=== PATIENT | female | born 1995 | race Caucasian/White ===

== ENCOUNTER 2017-01-19 11:27 | Emergency (ER) | payer OTHER ==
[~2017-01-19] VITALS: Wt 83.9 kg
[~2017-01-19 11:27] MED LIST: CELEXA20 MG PO; CLINDAMYCIN HC300 MG PO; LIDOCAINE VISC100 ML MM; LOPERAMIDE HCL2 MG PO; MOTRIN800 MG PO; PRENATAL1 TA1 PO; Ranitidine Hyd150 MG PO; ULTRAM50 MG PO; ZANTAC15 MG/ML; ZANTAC150 MG PO; ZOFRAN ODT4 MG PO; ZOFRAN2 MG/ML PO; ZOFRAN4 MG PO
[2017-01-19] MEDS ORDERED: NEURONTIN300 MG PO (11:30)
[2017-01-19] MEDS ORDERED: ESCITALOPRAM OX10 MG PO (11:30)
[2017-01-19] MEDS ORDERED: ALPRAZOLAM0.25 M2 PO (11:30)
[2017-01-19] MEDS ORDERED: BUPROPION HCL150 M1 PO (11:30)
[2017-01-19] MEDS ORDERED: NAPROSYN500 MG PO (11:41)
== END 2017-01-19 14:32 | disposition home or self-care (01) ==
LOC: ED 11:27
DX: S60.212A Contusion of left wrist, initial encounter (principal); F17.200 Nicotine dependence, unspecified, uncomplicated; Z79.899 Other long term (current) drug therapy; Z88.1 Allergy status to other antibiotic agents; Z88.8 Allergy status to other drugs, medicaments and biological substances; W19.XXXA Unspecified fall, initial encounter; Y93.89 Activity, other specified; Y92.89 Other specified places as the place of occurrence of the external cause; Y99.9 Unspecified external cause status

== ENCOUNTER 2017-03-16 16:34 | Emergency (ER) | payer OTHER ==
[~2017-03-16 16:34] MED LIST changes: +ALPRAZOLAM0.25 M2 PO; +BUPROPION HCL150 M1 PO; +ESCITALOPRAM OX10 MG PO; +NAPROSYN500 MG PO; +NEURONTIN300 MG PO
[2017-03-16 17:00] LABS: BILIRUBIN NEGATIVE (NEGATIVE); BLOOD 2+ (NEGATIVE); CLARITY SL CLOUDY (CLEAR); COLOR YELLOW (YELLOW); GLUCOSE NEGATIVE (NEGATIVE); KETONE NEGATIVE (NEGATIVE); LEUKO ESTERASE 1+ (NEGATIVE); NITRITE NEGATIVE (NEGATIVE); UROBILINOGEN 0.2 E.U./dl (0.2-1.0)
[2017-03-16 17:07] LABS: URINE AMPHETAMINES < 1000 (1000ng/ml); URINE BARBITURATES < 200 (200ng/ml); URINE BENZODIAZEPINES < 200 (200ng/ml); URINE CANNABINOIDS (THC) < 50 (50ng/ml); URINE COCAINE < 300 (300ng/ml); URINE METHADONE < 300 (300ng/ml); URINE OPIATES < 300 (300ng/ml)
[2017-03-16 17:08] LABS: BACTERIA 2+; EPITHELIAL CELLS TNTC; RBC 0-2 rbc/hpf (0-2)
[2017-03-16 17:09] LABS: URINE PHENCYCLIDINE < 25 (25ng/ml)
[2017-03-16 18:06] LABS: BASO % 0.2 % (0.0-1.0); EOS # 0.1 10*3/uL (0.0-0.4); EOS % 1.7 % (1.0-4.0); HEMATOCRIT 41.2 % (37.0-47.0); HEMOGLOBIN 13.3 g/dl (12.0-16.0); LYMPH # 2.5 10*3/uL (1.3-4.4); LYMPH % 30.6 % (27.0-41.0); MEAN CELL VOLUME 86.4 fl (81.0-99.0); MEAN CORPUSCULAR HGB 27.9 pg (27.0-31.0); MEAN CORPUSCULAR HGB CONC 32.3 g/dl (33.0-37.0); MEAN PLATELET VOLUME 9.4 fl (9.6-12.3); MONO # 0.4 10*3/uL (0.1-1.0); MONO % 5.3 % (3.0-9.0); PLATELET COUNT AUTOMATED 331 10*3/uL (130-400); RED BLOOD COUNT 4.77 10*6/uL (4.10-5.10); RED CELL DISTRI WIDTH 13.7 % (0-14.5); WHITE BLOOD COUNT 8.1 10*3/uL (4.8-10.8)
[2017-03-16 18:20] LABS: BUN 9 mg/dl (7-24); CHLORIDE 104 mmol/L (98-107); CREATININE 0.86 mg/dL (0.55-1.02); POTASSIUM 3.8 mmol/L (3.5-5.1); SODIUM 139 mmol/L (136-145)
[2017-03-16 18:21] LABS: ETHYL ALCOHOL < 3.0 mg/dl (<3)
[2017-03-16 18:27] LABS: ACETAMINOPHEN (TYLENOL) < 2.0 ug/ml (10-30); BETA-HCG, QUANT < 1.0 mIU/mL (1-3)
== END 2017-03-16 18:23 | disposition home or self-care (01) ==
LOC: ED 16:34
PROVIDERS: Emergency Medicine
DX: Z00.8 Encounter for other general examination (principal); F17.200 Nicotine dependence, unspecified, uncomplicated; Z79.899 Other long term (current) drug therapy; Z88.1 Allergy status to other antibiotic agents; Z88.8 Allergy status to other drugs, medicaments and biological substances

== ENCOUNTER 2017-03-20 20:50 | Emergency (ER) | payer OTHER ==
[~2017-03-20] VITALS: Ht 162.5 cm; Wt 90.7 kg
[2017-03-20 21:24] LABS: BILIRUBIN NEGATIVE (NEGATIVE); BLOOD NEGATIVE (NEGATIVE); CLARITY CLEAR (CLEAR); COLOR YELLOW (YELLOW); GLUCOSE NEGATIVE (NEGATIVE); KETONE NEGATIVE (NEGATIVE); LEUKO ESTERASE NEGATIVE (NEGATIVE); NITRITE NEGATIVE (NEGATIVE); SPECIFIC GRAVITY 1.015 (1.005-1.030); UROBILINOGEN 0.2 E.U./dl (0.2-1.0)
[2017-03-20 21:35] LABS: BACTERIA TRACE; MUCOUS 1+; RBC 0-2 rbc/hpf (0-2)
[2017-03-20 21:50] LABS: BASO % 0.4 % (0.0-1.0); EOS # 0.1 10*3/uL (0.0-0.4); EOS % 1.3 % (1.0-4.0); HEMATOCRIT 41.8 % (37.0-47.0); HEMOGLOBIN 13.5 g/dl (12.0-16.0); LYMPH # 2.1 10*3/uL (1.3-4.4); LYMPH % 40.6 % (27.0-41.0); MEAN CORPUSCULAR HGB 27.8 pg (27.0-31.0); MEAN CORPUSCULAR HGB CONC 32.3 g/dl (33.0-37.0); MEAN PLATELET VOLUME 9.4 fl (9.6-12.3); MONO # 0.4 10*3/uL (0.1-1.0); MONO % 7.2 % (3.0-9.0); NEUT # 2.6 10*3/uL (2.3-7.9); NEUT % 50.3 % (47.0-73.0); PLATELET COUNT AUTOMATED 297 10*3/uL (130-400); RED BLOOD COUNT 4.86 10*6/uL (4.10-5.10); WHITE BLOOD COUNT 5.3 10*3/uL (4.8-10.8)
[2017-03-20 22:05] LABS: ALBUMIN 3.6 gm/dl (3.1-4.5); ALKALINE PHOSPHATASE 129 U/L (45-117); BUN 6 mg/dl (7-24); CHLORIDE 104 mmol/L (98-107); CREATININE 0.84 mg/dL (0.55-1.02); LIPASE 148 U/L (73-393); POTASSIUM 3.5 mmol/L (3.5-5.1); SGOT/AST 13 IU/L (3-35); SGPT/ALT 35 U/L (12-78); SODIUM 139 mmol/L (136-145); TOTAL PROTEIN 7.3 gm/dL (6.4-8.2)
== END 2017-03-20 22:43 | disposition home or self-care (01) ==
LOC: ED 20:50
PROVIDERS: Nurse Practitioner
DX: R10.13 Epigastric pain (principal); R00.0 Tachycardia, unspecified; F17.200 Nicotine dependence, unspecified, uncomplicated; Z79.899 Other long term (current) drug therapy; Z88.1 Allergy status to other antibiotic agents; Z88.8 Allergy status to other drugs, medicaments and biological substances

== ENCOUNTER 2017-06-07 13:28 | Emergency (ER) | payer OTHER ==
[~2017-06-07] VITALS: Ht 162.5 cm; Wt 90.7 kg
[2017-06-07 15:07] LABS: ALBUMIN 3.7 gm/dl (3.1-4.5); ALKALINE PHOSPHATASE 127 U/L (45-117); B-hCG (QUALITATIVE) NEGATIVE (NEGATIVE); BUN 5 mg/dl (7-24); CHLORIDE 106 mmol/L (98-107); CREATININE 0.64 mg/dL (0.55-1.02); POTASSIUM 3.4 mmol/L (3.5-5.1); SGOT/AST 20 IU/L (3-35); SGPT/ALT 31 U/L (12-78); SODIUM 137 mmol/L (136-145)
[2017-06-07 15:42] LABS: BASO % 0.2 % (0.0-1.0); EOS % 0.3 % (1.0-4.0); HEMOGLOBIN 12.9 g/dl (12.0-16.0); LYMPH # 1.5 10*3/uL (1.3-4.4); LYMPH % 15.4 % (27.0-41.0); MEAN CELL VOLUME 85.2 fl (81.0-99.0); MEAN CORPUSCULAR HGB 28.9 pg (27.0-31.0); MEAN CORPUSCULAR HGB CONC 33.9 g/dl (33.0-37.0); MEAN PLATELET VOLUME 9.9 fl (9.6-12.3); MONO # 0.5 10*3/uL (0.1-1.0); MONO % 5.3 % (3.0-9.0); NEUT # 7.8 10*3/uL (2.3-7.9); NEUT % 78.2 % (47.0-73.0); PLATELET COUNT AUTOMATED 254 10*3/uL (130-400); RED BLOOD COUNT 4.46 10*6/uL (4.10-5.10); RED CELL DISTRI WIDTH 14.3 % (0-14.5)
[2017-06-07] MEDS ORDERED: ZOFRAN ODT4 MG SL (16:34)
[2017-06-07] MEDS ORDERED: AUGMENTIN 875875 MG PO (16:34)
== END 2017-06-07 17:44 | disposition home or self-care (01) ==
LOC: ED 13:28
PROVIDERS: Emergency Medicine
DX: L03.213 Periorbital cellulitis (principal); F17.200 Nicotine dependence, unspecified, uncomplicated; Z79.899 Other long term (current) drug therapy; Z88.1 Allergy status to other antibiotic agents; Z88.8 Allergy status to other drugs, medicaments and biological substances

== ENCOUNTER 2017-07-12 20:17 | Emergency (ER) | payer OTHER ==
[~2017-07-12] VITALS: Ht 165.1 cm; Wt 99.8 kg
[~2017-07-12 20:17] MED LIST changes: +AUGMENTIN 875875 MG PO; +ZOFRAN ODT4 MG SL
[2017-07-12] MEDS ORDERED: AUGMENTIN 875875 MG PO (21:47)
== END 2017-07-12 21:53 | disposition home or self-care (01) ==
LOC: ED 20:17
DX: K02.9 Dental caries, unspecified (principal); F17.200 Nicotine dependence, unspecified, uncomplicated; Z88.1 Allergy status to other antibiotic agents; Z88.2 Allergy status to sulfonamides

== ENCOUNTER 2017-09-17 11:50 | Emergency (ER) | payer OTHER ==
[~2017-09-17] VITALS: Ht 162.5 cm; Wt 90.7 kg
[2017-09-17] MEDS ORDERED: AMOXICILLIN500 M2 PO (12:13)
[2017-09-17] MEDS ORDERED: ZOFRAN ODT4 MG SL (12:13)
[2017-09-17] MEDS ORDERED: ZYRTEC10 MG PO (12:13)
== END 2017-09-17 12:21 | disposition home or self-care (01) ==
LOC: ED 11:50
DX: J01.90 Acute sinusitis, unspecified (principal); F17.200 Nicotine dependence, unspecified, uncomplicated; Z79.899 Other long term (current) drug therapy; Z87.01 Personal history of pneumonia (recurrent); Z88.5 Allergy status to narcotic agent; Z88.6 Allergy status to analgesic agent; Z88.1 Allergy status to other antibiotic agents

== ENCOUNTER 2018-03-04 10:55 | Emergency (ER) | payer OTHER ==
[~2018-03-04] VITALS: Ht 162.5 cm; Wt 90.7 kg
[~2018-03-04 10:55] MED LIST changes: +AMOXICILLIN500 M2 PO; +ZYRTEC10 MG PO
[2018-03-04 11:30] LABS: BASO % 0.3 % (0.0-1.0); EOS # 0.1 10*3/uL (0.0-0.4); EOS % 1.4 % (1.0-4.0); HEMATOCRIT 43.2 % (37.0-47.0); LYMPH # 2.6 10*3/uL (1.3-4.4); LYMPH % 34.9 % (27.0-41.0); MEAN CELL VOLUME 90.9 fl (81.0-99.0); MEAN CORPUSCULAR HGB 29.5 pg (27.0-31.0); MEAN CORPUSCULAR HGB CONC 32.4 g/dl (33.0-37.0); MEAN PLATELET VOLUME 9.3 fl (9.6-12.3); MONO # 0.3 10*3/uL (0.1-1.0); MONO % 4.2 % (3.0-9.0); NEUT # 4.3 10*3/uL (2.3-7.9); NEUT % 58.8 % (47.0-73.0); PLATELET COUNT AUTOMATED 287 10*3/uL (130-400); RED BLOOD COUNT 4.75 10*6/uL (4.10-5.10); RED CELL DISTRI WIDTH 13.1 % (0-14.5); WHITE BLOOD COUNT 7.3 10*3/uL (4.8-10.8)
[2018-03-04 11:44] LABS: ALBUMIN 3.5 gm/dl (3.1-4.5); ALKALINE PHOSPHATASE 119 U/L (45-117); BUN 5 mg/dl (7-24); CHLORIDE 105 mmol/L (98-107); CREATININE 0.85 mg/dL (0.55-1.02); POTASSIUM 3.9 mmol/L (3.5-5.1); SGOT/AST 37 IU/L (3-35); SGPT/ALT 76 U/L (12-78); SODIUM 138 mmol/L (136-145)
[2018-03-04 11:53] LABS: BILIRUBIN NEGATIVE (NEGATIVE); BLOOD NEGATIVE (NEGATIVE); CLARITY CLOUDY (CLEAR); COLOR YELLOW (YELLOW); GLUCOSE NEGATIVE (NEGATIVE); KETONE NEGATIVE (NEGATIVE); LEUKO ESTERASE 1+ (NEGATIVE); NITRITE NEGATIVE (NEGATIVE); PH 6.5 (5.0-9.0); SPECIFIC GRAVITY 1.015 (1.005-1.030); UROBILINOGEN 0.2 E.U./dl (0.2-1.0)
[2018-03-04 12:10] LABS: BACTERIA 2+; MUCOUS TRACE
[2018-03-04] MEDS ORDERED: MACROBID100 M1 PO (12:19)
[2018-03-04] MEDS ORDERED: Zofran4 MG SL (12:19)
== END 2018-03-04 12:39 | disposition home or self-care (01) ==
LOC: ED 10:55
PROVIDERS: Nurse Practitioner Family
DX: N39.0 Urinary tract infection, site not specified (principal); R30.0 Dysuria; R11.0 Nausea; F17.200 Nicotine dependence, unspecified, uncomplicated; Z88.2 Allergy status to sulfonamides; Z79.899 Other long term (current) drug therapy

== ENCOUNTER 2021-01-05 02:53 | Emergency (ER) | payer OTHER ==
[~2021-01-05] VITALS: Ht 162.5 cm; Wt 90.7 kg
[~2021-01-05 02:53] MED LIST changes: +MACROBID100 M1 PO; +Zofran4 MG SL
[2021-01-05] MEDS ORDERED: AMOXICILLIN500 M2 PO (04:12)
== END 2021-01-05 04:27 | disposition home or self-care (01) ==
LOC: ED 02:53
DX: K08.89 Other specified disorders of teeth and supporting structures (principal); F17.200 Nicotine dependence, unspecified, uncomplicated; Z79.899 Other long term (current) drug therapy; Z88.2 Allergy status to sulfonamides; Z88.1 Allergy status to other antibiotic agents; Z88.8 Allergy status to other drugs, medicaments and biological substances

== ENCOUNTER 2022-01-28 13:24 | Emergency (ER) | payer OTHER ==
[~2022-01-28] VITALS: Wt 93.0 kg
[2022-01-28] MEDS ORDERED: CLINDAMYCIN HC300 MG PO (13:53)
== END 2022-01-28 14:00 | disposition home or self-care (01) ==
LOC: ED 13:24
DX: K08.89 Other specified disorders of teeth and supporting structures (principal); Z79.899 Other long term (current) drug therapy; Z88.2 Allergy status to sulfonamides; Z88.1 Allergy status to other antibiotic agents

== ENCOUNTER 2022-05-28 11:49 | Emergency (ER) | payer OTHER ==
[~2022-05-28] VITALS: Ht 162.5 cm; Wt 88.5 kg
[2022-05-28] MEDS ORDERED: RELAFEN500 M1 PO (15:07)
[2022-05-28] MEDS ORDERED: CYCLOBENZAPRINE10 MG PO (15:07)
[2022-05-28] MEDS ORDERED: LIDODERM1 EACH T (15:07)
== END 2022-05-28 15:20 | disposition home or self-care (01) ==
LOC: ED 11:49
DX: M54.2 Cervicalgia (principal); M25.512 Pain in left shoulder; Z88.2 Allergy status to sulfonamides; Z88.1 Allergy status to other antibiotic agents; Z79.899 Other long term (current) drug therapy; Z90.89 Acquired absence of other organs; F17.200 Nicotine dependence, unspecified, uncomplicated; V86.59XA Driver of other special all-terrain or other off-road motor vehicle injured in nontraffic accident, initial encounter; Y93.89 Activity, other specified; Y92.89 Other specified places as the place of occurrence of the external cause; Y99.8 Other external cause status

== ENCOUNTER 2022-07-02 18:11 | Emergency (ER) | payer OTHER ==
[~2022-07-02] VITALS: Wt 88.9 kg
[~2022-07-02 18:11] MED LIST changes: +CYCLOBENZAPRINE10 MG PO; +LIDODERM1 EACH T; +RELAFEN500 M1 PO
== END 2022-07-02 20:45 | disposition left against medical advice (07) ==
LOC: ED 18:11
DX: N93.9 Abnormal uterine and vaginal bleeding, unspecified (principal); Z53.21 Procedure and treatment not carried out due to patient leaving prior to being seen by health care provider

== ENCOUNTER 2022-07-03 19:58 | Emergency (ER) | payer OTHER ==
[~2022-07-03] VITALS: Ht 162.5 cm; Wt 88.9 kg
[2022-07-03 21:23] LABS: BASO % 0.2 % (0.0-1.0); EOS # 0.1 10*3/uL (0.0-0.4); HEMATOCRIT 45.3 % (37.0-47.0); LYMPH # 3.6 10*3/uL (1.3-4.4); LYMPH % 39.4 % (27.0-41.0); MEAN CELL VOLUME 92.8 fl (81.0-99.0); MEAN CORPUSCULAR HGB 31.1 pg (27.0-31.0); MEAN CORPUSCULAR HGB CONC 33.6 g/dl (33.0-37.0); MEAN PLATELET VOLUME 9.4 fl (9.6-12.3); MONO # 0.4 10*3/uL (0.1-1.0); MONO % 4.4 % (3.0-9.0); NEUT % 54.8 % (47.0-73.0); PLATELET COUNT AUTOMATED 313 10*3/uL (130-400); RED BLOOD COUNT 4.88 10*6/uL (4.10-5.10); RED CELL DISTRI WIDTH 12.4 % (0-14.5); WHITE BLOOD COUNT 9.1 10*3/uL (4.8-10.8)
[2022-07-03 21:26] LABS: BILIRUBIN Negative (Negative); BLOOD Negative (Negative); CLARITY Clear (Clear); COLOR Yellow (Yellow); GLUCOSE Negative (Negative); KETONE Negative (Negative); LEUKO ESTERASE Trace (Negative); NITRITE Negative (Negative); PH 5.5 (4.5-8.0); UROBILINOGEN 0.2 E.U./dl (0.0-1.0)
[2022-07-03 21:41] LABS: ALKALINE PHOSPHATASE 94 U/L (46-116); BUN 7 mg/dl (9-23); CHLORIDE 105 mmol/L (98-107); POTASSIUM 3.6 mmol/L (3.4-5.1); SGPT/ALT 7 U/L (10-49); TOTAL PROTEIN 6.7 gm/dL (6.0-8.0)
[2022-07-03 21:45] LABS: BACTERIA TRACE
[2022-07-03 21:46] LABS: B-hCG (QUALITATIVE) NEGATIVE (NEGATIVE)
== END 2022-07-03 22:44 | disposition home or self-care (01) ==
LOC: ED 19:58
PROVIDERS: Emergency Medicine
DX: N93.8 Other specified abnormal uterine and vaginal bleeding (principal)

== ENCOUNTER 2022-12-01 20:16 | Emergency (ER) | payer OTHER ==
[~2022-12-01] VITALS: Ht 162.5 cm; Wt 81.6 kg
== END 2022-12-01 22:29 | disposition home or self-care (01) ==
LOC: ED 20:16
DX: T78.40XA Allergy, unspecified, initial encounter (principal); H10.9 Unspecified conjunctivitis; F32.A Depression, unspecified; Z88.2 Allergy status to sulfonamides; Z88.1 Allergy status to other antibiotic agents; Z88.8 Allergy status to other drugs, medicaments and biological substances; Z98.890 Other specified postprocedural states; X58.XXXA Exposure to other specified factors, initial encounter

== ENCOUNTER 2023-03-29 19:20 | Emergency (ER) | payer OTHER ==
[~2023-03-29] VITALS: Ht 162.5 cm; Wt 79.4 kg
[2023-03-29 20:06] LABS: BILIRUBIN Negative (Negative); BLOOD Negative (Negative); CLARITY Clear (Clear); COLOR Yellow (Yellow); GLUCOSE Negative (Negative); KETONE Negative (Negative); LEUKO ESTERASE Trace (Negative); NITRITE Negative (Negative); PH 6.5 (4.5-8.0); SPECIFIC GRAVITY 1.015 (1.001-1.030)
[2023-03-29 20:23] LABS: BASO % 0.3 % (0.0-1.0); EOS # 0.2 10*3/uL (0.0-0.4); EOS % 2.2 % (1.0-4.0); HEMATOCRIT 34.9 % (37.0-47.0); LYMPH # 3.3 10*3/uL (1.3-4.4); LYMPH % 43.2 % (27.0-41.0); MEAN CELL VOLUME 92.6 fl (81.0-99.0); MEAN CORPUSCULAR HGB 29.7 pg (27.0-31.0); MEAN CORPUSCULAR HGB CONC 32.1 g/dl (33.0-37.0); MEAN PLATELET VOLUME 9.9 fl (9.6-12.3); MONO # 0.5 10*3/uL (0.1-1.0); MONO % 5.9 % (3.0-9.0); NEUT # 3.7 10*3/uL (2.3-7.9); NEUT % 48.3 % (47.0-73.0); NUCLEATED RED BLOOD CELL 0.1 10*3/uL (0.0-0.0); PLATELET COUNT AUTOMATED 287 10*3/uL (130-400); RED BLOOD COUNT 3.77 10*6/uL (4.10-5.10); RED CELL DISTRI WIDTH 14.5 % (0-14.5); WHITE BLOOD COUNT 7.6 10*3/uL (4.8-10.8)
[2023-03-29 20:23] LABS: RBC 0-2 rbc/hpf (0-2)
[2023-03-29 20:24] LABS: BACTERIA 2+
[2023-03-29 20:43] LABS: INTERNATIONAL NORM RATIO 1.1 (2.0-3.5)
[2023-03-29] MEDS ORDERED: CIPRO500 MG PO (20:44)
[2023-03-29 21:03] LABS: ALKALINE PHOSPHATASE 70 U/L (46-116); BETA-HCG, QUANT < 3.0 mIU/mL (3-10); BUN 9 mg/dl (9-23); CHLORIDE 110 mmol/L (98-107); LIPASE 22 U/L (12-53); POTASSIUM 3.2 mmol/L (3.4-5.1); SGPT/ALT 13 U/L (10-49); TOTAL PROTEIN 5.7 gm/dL (6.0-8.0)
== END 2023-03-29 21:16 | disposition home or self-care (01) ==
LOC: ED 19:20
PROVIDERS: Internal Medicine
DX: N39.0 Urinary tract infection, site not specified (principal); E87.6 Hypokalemia; Z88.2 Allergy status to sulfonamides; Z88.1 Allergy status to other antibiotic agents; Z79.2 Long term (current) use of antibiotics; Z79.899 Other long term (current) drug therapy

== ENCOUNTER 2023-04-01 21:23 | Emergency (ER) | payer OTHER ==
[~2023-04-01] VITALS: Ht 162.5 cm; Wt 78.0 kg
[~2023-04-01 21:23] MED LIST changes: +CIPRO500 MG PO
[2023-04-01 22:01] LABS: BASO % 0.4 % (0.0-1.0); EOS # 0.1 10*3/uL (0.0-0.4); EOS % 1.2 % (1.0-4.0); HEMATOCRIT 37.1 % (37.0-47.0); LYMPH # 3.5 10*3/uL (1.3-4.4); LYMPH % 42.6 % (27.0-41.0); MEAN CELL VOLUME 90.3 fl (81.0-99.0); MEAN CORPUSCULAR HGB 29.7 pg (27.0-31.0); MEAN CORPUSCULAR HGB CONC 32.9 g/dl (33.0-37.0); MEAN PLATELET VOLUME 9.5 fl (9.6-12.3); MONO # 0.3 10*3/uL (0.1-1.0); MONO % 4.1 % (3.0-9.0); NEUT # 4.1 10*3/uL (2.3-7.9); NEUT % 50.5 % (47.0-73.0); PLATELET COUNT AUTOMATED 345 10*3/uL (130-400); RED BLOOD COUNT 4.11 10*6/uL (4.10-5.10); RED CELL DISTRI WIDTH 14.6 % (0-14.5); WHITE BLOOD COUNT 8.1 10*3/uL (4.8-10.8)
[2023-04-01 22:24] LABS: ALKALINE PHOSPHATASE 77 U/L (46-116); BUN 6 mg/dl (9-23); CHLORIDE 110 mmol/L (98-107); LIPASE 36 U/L (12-53); POTASSIUM 2.9 mmol/L (3.4-5.1); SGPT/ALT 9 U/L (10-49); TOTAL PROTEIN 6.5 gm/dL (6.0-8.0)
[2023-04-01 22:24] LABS: BILIRUBIN Negative (Negative); BLOOD Negative (Negative); CLARITY Clear (Clear); COLOR Yellow (Yellow); GLUCOSE Negative (Negative); KETONE Negative (Negative); LEUKO ESTERASE Negative (Negative); NITRITE Negative (Negative); SPECIFIC GRAVITY <= 1.005 (1.001-1.030); UROBILINOGEN 0.2 E.U./dl (0.0-1.0)
[2023-04-01 23:03] LABS: EPITHELIAL CELLS 21-30
[2023-04-01 23:29] LABS: URINE AMPHETAMINES Negative (1000ng/ml); URINE BARBITURATES Negative (200ng/ml); URINE BENZODIAZEPINES Positive (200ng/ml); URINE CANNABINOIDS (THC) Positive (50ng/ml); URINE COCAINE Positive (300ng/ml); URINE METHADONE Negative (300ng/ml); URINE OPIATES Negative (300ng/ml); URINE PHENCYCLIDINE Negative (25ng/ml)
== END 2023-04-01 23:45 | disposition home or self-care (01) ==
LOC: ED 21:23
PROVIDERS: Internal Medicine
DX: R11.10 Vomiting, unspecified (principal); F12.10 Cannabis abuse, uncomplicated; F32.A Depression, unspecified; Z79.899 Other long term (current) drug therapy; Z88.2 Allergy status to sulfonamides; Z88.1 Allergy status to other antibiotic agents; Z88.8 Allergy status to other drugs, medicaments and biological substances; Z98.890 Other specified postprocedural states; F17.290 Nicotine dependence, other tobacco product, uncomplicated

== ENCOUNTER 2023-06-14 12:08 | Emergency (ER) | payer OTHER ==
[~2023-06-14] VITALS: Ht 162.5 cm; Wt 72.6 kg
[2023-06-14] MEDS ORDERED: OMEPRAZOLE40 MG PO (12:30)
[2023-06-14] MEDS ORDERED: VALIUM2 MG PO (12:30)
[2023-06-14 13:09] LABS: BASO % 0.4 % (0.0-1.0); EOS # 0.1 10*3/uL (0.0-0.4); EOS % 1.2 % (1.0-4.0); HEMATOCRIT 38.9 % (37.0-47.0); LYMPH # 2.6 10*3/uL (1.3-4.4); LYMPH % 33.5 % (27.0-41.0); MEAN CELL VOLUME 92.6 fl (81.0-99.0); MEAN CORPUSCULAR HGB 28.6 pg (27.0-31.0); MEAN CORPUSCULAR HGB CONC 30.8 g/dl (33.0-37.0); MEAN PLATELET VOLUME 9.4 fl (9.6-12.3); MONO # 0.5 10*3/uL (0.1-1.0); MONO % 5.8 % (3.0-9.0); NEUT # 4.6 10*3/uL (2.3-7.9); NEUT % 58.8 % (47.0-73.0); PLATELET COUNT AUTOMATED 269 10*3/uL (130-400); RED CELL DISTRI WIDTH 14.4 % (0-14.5); WHITE BLOOD COUNT 7.8 10*3/uL (4.8-10.8)
[2023-06-14 13:11] LABS: BILIRUBIN Negative (Negative); BLOOD Trace-Intact (Negative); CLARITY Cloudy (Clear); COLOR Yellow (Yellow); GLUCOSE Negative (Negative); KETONE Negative (Negative); LEUKO ESTERASE 3+ (Negative); NITRITE Negative (Negative); UROBILINOGEN 0.2 E.U./dl (0.0-1.0)
[2023-06-14 13:26] LABS: WBC TNTC wbc/hpf (0-5)
[2023-06-14 13:30] LABS: ALKALINE PHOSPHATASE 92 U/L (46-116); BUN 8 mg/dl (9-23); CHLORIDE 109 mmol/L (98-107); LIPASE 29 U/L (12-53); POTASSIUM 3.6 mmol/L (3.4-5.1); SGPT/ALT 23 U/L (5-49); TOTAL PROTEIN 6.1 gm/dL (6.0-8.0)
[2023-06-14] MEDS ORDERED: CIPRO500 MG PO (15:58)
== END 2023-06-14 16:14 | disposition home or self-care (01) ==
LOC: ED 12:08
PROVIDERS: Nurse Practitioner Family
DX: N39.0 Urinary tract infection, site not specified (principal); F32.A Depression, unspecified; Z91.041 Radiographic dye allergy status; Z88.2 Allergy status to sulfonamides; Z88.1 Allergy status to other antibiotic agents; Z88.8 Allergy status to other drugs, medicaments and biological substances; Z98.890 Other specified postprocedural states

== ENCOUNTER 2023-07-13 14:32 | Emergency (ER) | payer OTHER ==
[~2023-07-13] VITALS: Ht 160 cm; Wt 72.6 kg
[~2023-07-13 14:32] MED LIST changes: +OMEPRAZOLE40 MG PO; +VALIUM2 MG PO
[2023-07-13] MEDS ORDERED: SEROQUEL200 MG PO (14:40)
[2023-07-13] MEDS ORDERED: ADDERALL 30 MG30 MG PO (14:51)
[2023-07-13 15:10] LABS: BILIRUBIN Negative (Negative); BLOOD Negative (Negative); CLARITY Clear (Clear); COLOR Yellow (Yellow); GLUCOSE Negative (Negative); KETONE Trace (Negative); LEUKO ESTERASE Trace (Negative); NITRITE Negative (Negative)
[2023-07-13 15:12] LABS: BASO % 0.3 % (0.0-1.0); EOS # 0.1 10*3/uL (0.0-0.4); EOS % 0.9 % (1.0-4.0); HEMATOCRIT 38.5 % (37.0-47.0); LYMPH # 2.9 10*3/uL (1.3-4.4); LYMPH % 29.2 % (27.0-41.0); MEAN CELL VOLUME 91.4 fl (81.0-99.0); MEAN CORPUSCULAR HGB 28.3 pg (27.0-31.0); MEAN CORPUSCULAR HGB CONC 30.9 g/dl (33.0-37.0); MEAN PLATELET VOLUME 9.1 fl (9.6-12.3); MONO # 0.4 10*3/uL (0.1-1.0); MONO % 3.9 % (3.0-9.0); NEUT # 6.6 10*3/uL (2.3-7.9); NEUT % 65.5 % (47.0-73.0); PLATELET COUNT AUTOMATED 286 10*3/uL (130-400); RED BLOOD COUNT 4.21 10*6/uL (4.10-5.10); RED CELL DISTRI WIDTH 14.6 % (0-14.5)
[2023-07-13 15:30] LABS: ALKALINE PHOSPHATASE 95 U/L (46-116); BUN 9 mg/dl (9-23); CHLORIDE 109 mmol/L (98-107); POTASSIUM 3.8 mmol/L (3.4-5.1)
[2023-07-13 15:38] LABS: SGPT/ALT < 7 U/L (5-49)
[2023-07-13 15:44] LABS: BACTERIA 2+; MUCOUS 2+
[2023-07-13] MEDS ORDERED: CLINDAMYCIN HC300 MG PO (16:32)
[2023-07-14] MEDS ORDERED: MELOXICAM15 MG PO (11:49)
== END 2023-07-13 16:43 | disposition home or self-care (01) ==
LOC: ED 14:32
PROVIDERS: Emergency Medicine
DX: N39.0 Urinary tract infection, site not specified (principal); M54.50 Low back pain, unspecified; F17.200 Nicotine dependence, unspecified, uncomplicated; Z91.041 Radiographic dye allergy status; Z88.2 Allergy status to sulfonamides; Z88.1 Allergy status to other antibiotic agents; Z79.899 Other long term (current) drug therapy

== ENCOUNTER 2023-07-23 15:59 | Emergency (ER) | payer OTHER ==
[~2023-07-23] VITALS: Ht 162.5 cm; Wt 74.8 kg
[~2023-07-23 15:59] MED LIST changes: +ADDERALL 30 MG30 MG PO; +MELOXICAM15 MG PO; +SEROQUEL200 MG PO
[2023-07-23] MEDS ORDERED: CYCLOBENZAPRINE5 M3 PO (17:43)
== END 2023-07-23 21:19 | disposition home or self-care (01) ==
LOC: ED 15:59
DX: S39.012A Strain of muscle, fascia and tendon of lower back, initial encounter (principal); M79.652 Pain in left thigh; M79.651 Pain in right thigh; F32.A Depression, unspecified; Z91.041 Radiographic dye allergy status; Z88.2 Allergy status to sulfonamides; Z88.1 Allergy status to other antibiotic agents; Z88.8 Allergy status to other drugs, medicaments and biological substances; Z98.890 Other specified postprocedural states; X58.XXXA Exposure to other specified factors, initial encounter; Y93.89 Activity, other specified; Y92.89 Other specified places as the place of occurrence of the external cause; Y99.8 Other external cause status

== ENCOUNTER 2023-10-30 10:17 | Emergency (ER) | payer OTHER ==
[~2023-10-30] VITALS: Wt 81.6 kg
[~2023-10-30 10:17] MED LIST changes: +CYCLOBENZAPRINE5 M3 PO
[2023-10-30] MEDS ORDERED: MELOXICAM15 MG PO (12:24)
[2023-10-30] MEDS ORDERED: ACETAMINOPHEN 325 MG TAB PO ONE (12:25)
== END 2023-10-30 12:30 | disposition home or self-care (01) ==
LOC: ED 10:17
DX: S93.401A Sprain of unspecified ligament of right ankle, initial encounter (principal); Z91.041 Radiographic dye allergy status; Z88.2 Allergy status to sulfonamides; Z88.1 Allergy status to other antibiotic agents; Z79.899 Other long term (current) drug therapy; W01.0XXA Fall on same level from slipping, tripping and stumbling without subsequent striking against object, initial encounter; Y93.89 Activity, other specified; Y92.89 Other specified places as the place of occurrence of the external cause; Y99.8 Other external cause status

== ENCOUNTER 2024-04-09 00:38 | Emergency (ER) | payer OTHER ==
[~2024-04-09] VITALS: Ht 162.5 cm; Wt 83.9 kg
[2024-04-09] MEDS ORDERED: Ondansetron Hydrochloride 4 MG TAB SL ONE (01:10)
[2024-04-09] MEDS ORDERED: Acetaminophen/Hydrocodone HP 10/325 PO ONE (01:10)
== END 2024-04-09 01:34 | disposition home or self-care (01) ==
LOC: ED 00:38
DX: K02.9 Dental caries, unspecified (principal); K08.89 Other specified disorders of teeth and supporting structures; F32.A Depression, unspecified; Z91.041 Radiographic dye allergy status; Z88.2 Allergy status to sulfonamides; Z88.1 Allergy status to other antibiotic agents; Z88.8 Allergy status to other drugs, medicaments and biological substances; Z98.890 Other specified postprocedural states

== ENCOUNTER 2024-04-22 14:36 | Emergency (ER) | payer OTHER ==
[~2024-04-22] VITALS: Ht 162.5 cm; Wt 81.6 kg
[2024-04-22] MEDS ORDERED: GABAPENTIN400 MG PO (14:54)
[2024-04-22] MEDS ORDERED: ACETAMINOPHEN 325 MG TAB PO ONE (15:50)
[2024-04-22] MEDS ORDERED: Ondansetron Hydrochloride 4 MG TAB PO ONE (15:50)
[2024-04-22] MEDS ORDERED: Ondansetron4 MG PO (16:56)
== END 2024-04-22 17:12 | disposition home or self-care (01) ==
LOC: ED 14:36
DX: B34.9 Viral infection, unspecified (principal); Z20.822 Contact with and (suspected) exposure to COVID-19; F17.210 Nicotine dependence, cigarettes, uncomplicated; Z91.041 Radiographic dye allergy status; Z88.2 Allergy status to sulfonamides; Z88.1 Allergy status to other antibiotic agents; Z79.899 Other long term (current) drug therapy